=== PATIENT | male | born 1960 | race African-American/Black ===

== ENCOUNTER 2019-01-26 10:22 | Emergency (ER) | payer MEDICARE, MEDICAID ==
[2019-01-26 10:36] VITALS: BP 152/102
--- NOTE | 2019-01-26 10:40 | UC ---
Dental HPI - HPI Summary HPI Summary: 58 yo male presents with LEFT neck mass. He tells me that this morning he woke up and noticed a lump to the left underside of his jaw and left anterior neck. Was not there last night. He is eating and drinking well. Denies fever, chills, pain to the area, dental pain, difficulty swallowing or breathing. - History of Current Complaint Chief Complaint: UCDentalProblem Stated Complaint: SWOLLEN SIDE OF FACE Time Seen by Provider: 01/26/19 10:40 Hx Obtained From: Patient Pain Intensity: 0 - Allergies/Home Medications Allergies/Adverse Reactions: Allergies Allergy/AdvReac Type Severity Reaction Status Date / Time MS Pregabalin [From Lyrica] Allergy Mild Itching Verified 01/26/19 10:30 PMH/Surg Hx/FS Hx/Imm Hx Cardiovascular History: Hypertension GI/ History: Gastroesophageal Reflux - Surgical History Surgical History: Yes Surgery Procedure, Year, and Place: left knee replaced. umbilical hernia - Social History Lives: With Family Alcohol Use: Occasionally Substance Use Type: Marijuana Substance Use Comment - Amount & Last Used: none today Smoking Status (MU): Current Some Day Smoker Review of Systems All Other Systems Reviewed And Are Negative: No Constitutional: Positive: Negative Skin: Positive: Negative Eyes: Positive: Negative ENT: Positive: Other - Left neck mass Respiratory: Positive: Negative Cardiovascular: Positive: Negative Gastrointestinal: Positive: Negative Musculoskeletal: Positive: Negative Neurological: Positive: Negative Psychological: Positive: Negative Physical Exam - Summary Physical Exam Summary: GENERAL: NAD. WDWN. No pain distress. SKIN: No rashes, sores, lesions, or open wounds. HEENT: Head: AT/NC Eyes: EOM intact. Conjunctiva clear without inflammation or discharge. Ears: Hearing grossly normal. TMs intact, no bulging, erythema, or edema. Nose: Nasal mucosa pink and moist. NTTP maxillary and frontal sinus. Throat: Posterior oropharynx without exudates, erythema, or tonsillar enlargement. Uvula midline. NECK: Supple. LEFT anterior neck and submandibular region with ~3.0cm oval shaped firm mass with surrounding mild edema. NTTP. No erythema, induration, or streaking noted. CHEST: CTAB. No r/r/w. No accessory muscle use. Breathing comfortably and in no distress. CV: RRR. Without m/r/g. Pulses intact. Cap refill <2seconds NEURO: Alert. PSYCH: Age appropriate behavior. Triage Information Reviewed: Yes Vital Signs: Initial Vital Signs Temp 98.1 F 01/26/19 10:32 Pulse 92 01/26/19 10:32 Resp 16 01/26/19 10:32 BP 152/102 01/26/19 10:32 Pulse Ox 99 01/26/19 10:32 Vital Signs Reviewed: Yes Procedures - Sedation Patient Received Moderate/Deep Sedation with Procedure: No Dental Complaint Course/Dx - Course Course Of Treatment: Given the rapid onset of symptoms, I am most concerned for a soft tissue abscess , however this seems atypical as he has little to no pain and has no fevers. I recommended that he go to the ER for further evaluation of the mass for likely CT neck with contrast. He was agreeable to this and will go now. - Differential Dx/Diagnosis Provider Diagnosis: Mass of left side of neck Discharge ED - Sign-Out/Discharge Documenting (check all that apply): Patient Departure All imaging exams completed and their final reports reviewed: No Studies - Discharge Plan Condition: Stable Disposition: HOME-RECOMMEND TO ED Referrals: Quang Plaza MD [Primary Care Provider] - Additional Instructions: Please go to the ER for further evaluation of your left neck mass - Billing Disposition and Condition Condition: STABLE Disposition: Home-Recommend to ED - Attestation Statements Provider Attestation: patient not seen by me I was available for consult chart reviewed shahriar
== END 2019-01-26 10:45 | disposition home health service (06) ==
LOC: UCEAST 10:22
DX: R22.1 Localized swelling, mass and lump, neck (principal); I10 Essential (primary) hypertension; K21.9 Gastro-esophageal reflux disease without esophagitis; F17.210 Nicotine dependence, cigarettes, uncomplicated
CPT/HCPCS: 99212; G0463

== ENCOUNTER 2019-01-26 11:19 | Emergency (ER) | payer MEDICARE, MEDICAID ==
[2019-01-26] MEDS ORDERED: NS 0.9% 1000 ML** 1,000 ML IV ONE (12:49)
[2019-01-26 13:36] LABS: Albumin 4.4 g/dL (3.2-5.2); Albumin/Globulin Ratio 1.5 (1-3); BUN/Creatinine Ratio 21.7 (8-20); C Reactive Protein 13.34 mg/L (<8.01); Calcium 9.5 mg/dL (8.6-10.3); EGFR African American 143.5 (>60); EGFR Non-African American 118.6 (>60); Potassium 3.7 mmol/L (3.5-5.0); Total Bilirubin 0.4 mg/dL (0.2-1.0); Total Protein 7.4 g/dL (6.4-8.9)
[2019-01-26] MEDS ORDERED: Iohexol 300* (CONTRAST) 10 ML SDV IV ONE (13:42)
[2019-01-26 14:03] LABS: Hematocrit 36 % (42-52); Hemoglobin 11.8 g/dL (14.0-18.0); Mean Corpuscular HGB Conc 33 g/dL (31-36); Mean Corpuscular Hemoglobin 28 pg (27-31); Mean Corpuscular Volume 85 fL (80-94); Mean Platelet Volume 7.8 fL (7.4-10.4); Platelet Count 296 10^3/uL (150-450); Red Blood Count 4.25 10^6 /uL (4.18-5.48); Red Cell Distribution Width 15 % (10-15); White Blood Count 5.3 10^3/uL (3.5-10.8)
[2019-01-26 14:57] VITALS: BP 0/0
--- NOTE | 2019-01-26 15:42 | ED ---
Throat Pain/Nasal Congestion - HPI Summary HPI Summary: This patient is a 58-year-old obese male presenting to the ED with left-sided neck pain. He is endorsing pain to the left submandibular area. He noticed the area swollen last night and went to the urgent care for further evaluation today. He was sent here for further evaluation to the ED. Patient has been denying any fevers, sweats, chills. Denies any night sweats. Denies any chest pain or shortness of breath. Denies any dysphagia odynophagia or difficulty with breathing. Denies any noticeable airway compromise. Denies any hoarseness , drooling, wheezing. He first noticed the area when driving last night, the area has not gotten bigger or smaller, however remained the same size. He denies any recent illness. Immunizations are up-to-date. - History of Current Complaint Chief Complaint: EDThroatPain Time Seen by Provider: 01/26/19 12:35 Hx Obtained From: Patient Onset/Duration: Sudden Onset Severity: Moderate Associated Signs And Symptoms: Negative: Dysphagia, FB Sensation, Drooling, Wheezing, Hoarseness, Sinus Discomfort, Nasal Discharge - Epiglottits Risk Factors Epiglottis Risk Factors: Negative - Allergies/Home Medications Allergies/Adverse Reactions: Allergies Allergy/AdvReac Type Severity Reaction Status Date / Time MS Pregabalin [From Lyrica] Allergy Mild Itching Verified 01/26/19 10:30 PMH/Surg Hx/FS Hx/Imm Hx Previously Healthy: Yes Endocrine/Hematology History: Denies: Hx Diabetes Cardiovascular History: Reports: Hx Hypertension - MEDICATED Denies: Hx Pacemaker/ICD History: Denies: Hx Renal Disease Sensory History: Denies: Hx Hearing Aid Psychiatric History: Denies: Hx Panic Disorder - Cancer History Cancer Type, Location and Year: PROSTATE CA - Hx Chemotherapy: No Hx Radiation Therapy: No - Surgical History Surgery Procedure, Year, and Place: left knee replaced. umbilical hernia - Immunization History Hx Pertussis Vaccination: No Immunizations Up to Date: Yes Infectious Disease History: No Infectious Disease History: Denies: Traveled Outside the [place] in Last 30 Days - Social History Occupation: Employed Full-time Lives: With Family Alcohol Use: Occasionally Hx Substance Use: No Substance Use Type: Reports: None Substance Use Comment - Amount & Last Used: none today Hx Tobacco Use: Yes Smoking Status (MU): Light Every Day Tobacco Smoker Review of Systems Constitutional: Negative Negative: Fever, Chills, Fatigue ENT: Other - enlarged area to the L submandibular space Negative: Palpitations, Chest Pain Negative: Shortness Of Breath, Cough Genitourinary: Negative Positive: no symptoms reported, see HPI Negative: Arthralgia, Myalgia Skin: Negative All Other Systems Reviewed And Are Negative: Yes Physical Exam Triage Information Reviewed: Yes Vital Signs On Initial Exam: Initial Vitals Temp Pulse Resp BP Pulse Ox 98.7 F 90 18 135/103 97 01/26/19 11:23 01/26/19 11:23 01/26/19 11:23 01/26/19 11:23 01/26/19 11:23 Vital Signs Reviewed: Yes Appearance: Positive: Well-Appearing, Well-Nourished Skin: Positive: Warm, Skin Color Reflects Adequate Perfusion Head/Face: Positive: Normal Head/Face Inspection Eyes: Positive: EOMI, JONAH, Conjunctiva Clear ENT: Positive: Pharynx normal, Other - L submandiblar mass - palpable and hard - non painful. Negative: Nasal congestion, Nasal drainage, Tonsillar swelling, Tonsillar exudate, Hoarse voice, Dental tenderness, Sinus tenderness Neck: Positive: Supple Respiratory/Lung Sounds: Positive: Clear to Auscultation, Breath Sounds Present Cardiovascular: Positive: RRR, Pulses are Symmetrical in both Upper and Lower Extremities Musculoskeletal: Positive: Normal, Strength/ROM Intact Neurological: Positive: Speech Normal Psychiatric: Positive: Affect/Mood Appropriate Procedures - Sedation Patient Received Moderate/Deep Sedation with Procedure: No Diagnostics - Vital Signs Vital Signs Temp Pulse Resp BP Pulse Ox 01/26/19 14:56 0 F 0 0 0/0 0 01/26/19 13:47 83 157/107 98 01/26/19 13:18 90 136/117 100 01/26/19 13:00 89 98 01/26/19 12:47 86 147/98 98 01/26/19 12:46 83 98 01/26/19 11:23 98.7 F 90 18 135/103 97 - Laboratory Lab Results: Lab Results 01/26/19 01/26/19 01/26/19 Range/Units 13:07 13:07 13:07 WBC 5.3 (3.5-10.8) 10^3/uL RBC 4.25 (4.18-5.48) 10^6 /uL Hgb 11.8 L (14.0-18.0) g/dL Hct 36 L (42-52) % MCV 85 (80-94) fL MCH 28 (27-31) pg MCHC 33 (31-36) g/dL RDW 15 (10-15) % Plt Count 296 (150-450) 10^3/uL MPV 7.8 (7.4-10.4) fL Sodium 140 (135-145) mmol/L Potassium 3.7 (3.5-5.0) mmol/L Chloride 105 (101-111) mmol/L Carbon Dioxide 29 (22-32) mmol/L Anion Gap 6 (2-11) mmol/L BUN 15 (6-24) mg/dL Creatinine 0.69 (0.67-1.17) mg/dL Est GFR ( Amer) 143.5 (>60) Est GFR (Non-Af Amer) 118.6 (>60) BUN/Creatinine Ratio 21.7 H (8-20) Glucose 97 (70-100) mg/dL Lactic Acid 1.1 (0.5-2.0) mmol/L Calcium 9.5 (8.6-10.3) mg/dL Total Bilirubin 0.40 (0.2-1.0) mg/dL AST 17 (13-39) U/L ALT 26 (7-52) U/L Alkaline Phosphatase 104 (34-104) U/L C-Reactive Protein 13.34 H (<8.01) mg/L Total Protein 7.4 (6.4-8.9) g/dL Albumin 4.4 (3.2-5.2) g/dL Globulin 3.0 (2-4) g/dL Albumin/Globulin Ratio 1.5 (1-3) Result Diagrams: 01/26/19 13:07 01/26/19 13:07 Lab Statement: Any lab studies that have been ordered have been reviewed, and results considered in the medical decision making process. EENT Course/Dx - Course Course Of Treatment: Patient denies any recent illness. He denies any fevers, sweats, chills. He was sent here from urgent care for further evaluation of the left side onto the sub-mandibular area. He has never had anything like this before. Endorses infrequent smoking history, denies alcohol use. Marijuana use intermittently. Patient denies any cancer history. Hypertension history and takes medications for this. Labs obtained which are fairly unremarkable. Patient is afebrile. He denies any other symptoms at this time. On physical examination, there is a large 3 cm area to the L Mann fibular area which is hard and palpable. Denies any pain to this area. He denies any pain to the ear, difficulty with opening the jaw or swallowing. CT soft tissue neck with contrast was obtained which shows a left submandibular C Sara tinnitus. The orifice of the left mandibular salivary gland is of secured by streak artifact. The anterior floor of mouth could be palpated to screen for a potential sialolith. Radiologic resolution should be documented after the patient's symptoms resolved. I discussed treatment options with the patient for using hard candies, lemon drops and drink plenty of water. He will follow- up with ENT if symptoms have not resolved spontaneously within the next 2 days. - Differential Diagnoses Differential Diagnoses: Other - Large palpable mass, submandibular sialolith - Diagnoses Provider Diagnoses: Sialadenitis Discharge ED - Sign-Out/Discharge Documenting (check all that apply): Patient Departure - Discharge Plan Condition: Stable Disposition: HOME Patient Education Materials: Sialoadenitis (ED) Referrals: Quang Plaza MD [Primary Care Provider] - Frantz East MD [Medical Doctor] - Additional Instructions: Hard sour candies If symptoms become worse - you will need to see an ENT physician - Billing Disposition and Condition Condition: STABLE Disposition: Home - Attestation Statements Provider Attestation: pt seen by midlevel provider independently, based on their assessment, it was not necessary to present the case to me but I was available for consultation. I did not form a physician-patient relationship with the patient. The chart however, has been reviewed. am signing this note strictly in an administrative capacity.
== END 2019-01-26 14:56 | disposition home or self-care (01) ==
LOC: ED 11:19
DX: K11.20 Sialoadenitis, unspecified (principal); I10 Essential (primary) hypertension; Z79.899 Other long term (current) drug therapy; C61 Malignant neoplasm of prostate; F17.210 Nicotine dependence, cigarettes, uncomplicated; R22.1 Localized swelling, mass and lump, neck; K21.9 Gastro-esophageal reflux disease without esophagitis
CPT/HCPCS: 36415; 70491; 80053; 83605; 85027; 86140; 96360; 99212; 99282; G0463; Q9967